=== PATIENT | female | born 1990 ===

== ENCOUNTER 2018-06-08 16:30 | Emergency (ER) | payer MEDICAID ==
[~2018-06-08] VITALS: Ht 157.5 cm; Wt 61.4 kg
[2018-06-08 16:46] VITALS: Ht 157.5 cm; Wt 61.4 kg
[2018-06-08] MEDS ORDERED: NORCO 7.5/325 T1 TA1 PO (18:12)
[2018-06-08 18:29] VITALS: BP 127/84
== END 2018-06-08 18:37 | disposition home or self-care (01) ==
LOC: D.ER 16:30
DX: S00.83XA Contusion of other part of head, initial encounter (principal); Y04.2XXA Assault by strike against or bumped into by another person, initial encounter; Y93.89 Activity, other specified; Y92.89 Other specified places as the place of occurrence of the external cause